=== PATIENT | male | born 1955 | race Caucasian/White ===

== ENCOUNTER 2020-03-20 13:05 | Outpatient (CLI) | payer MEDICAID, SELFPAY ==
--- NOTE | 2020-03-20 13:30 | CT_ITS ---
WS: [id number] CT LUMBAR SPINE TECHNIQUE: Noncontrast CT of the lumbar spine with coronal and sagittal reformatted images. CLINICAL INFORMATION: Low back pain COMPARISON: MRI January 19, 2020 DLP: 2221.[address] scans at [facility] use at least one of these dose optimization techniques: automat ed exposure control; mA and/or kV adjustment per patient size (includes targeted exams where dose is matched to clinical indication); or iterative reconstruction. FINDINGS: Mild lumbar curve. No acute compression. Grade 1 anterolisthesis L5 on S1 measuring 1.5 mm. Chronic b ilateral spondylolysis. Disc bulging worse at L3-L4, L4-L5 and L5-S1. No acute appearing compression fractures. L1-L2: Normal. L2-L3: Mild annular bulging with slight effacement of ventral thecal sac. Moderate facet arthropathy. Spinal canal and foramen are patent. L3-L4: Mild annular bulging with mild central canal stenosis. Mild right greater than left foraminal narrowing. Moderate facet arthropathy. L4-L5: Mild annular bulging with slight effacement of ventral thecal sac. Mild right and no significa nt left foraminal narrowing. Moderate moderate facet arthropathy with ligamentum flavum hypertrophy. L5-S1: Small right pericentral protrusion with slight contact of the right S1 nerve root. Mild to mod erate bilateral foraminal narrowing right greater than left. Moderate facet arthropathy Visualized pelvic bony structures: Normal. Paravertebral soft tissues: Normal. CT/CT lumbar spine wo con* [id number] IMPRESSION: 1. No significant changes since the prior MRI. 2. Slight anterolisthesis L5 on S1 measuring 1.6 mm with chronic spondylolysis . 3. Mild central canal stenosis L3-L4 and L4-L5. 4. Small right pericentral protrusion L5-S1 slightly impinges the right S1 ner ve root. 5. [id number]-[id number]'s bony foraminal narrowing worse at bilateral L5 S1.
--- NOTE | 2020-03-20 13:45 | XR_ITS ---
WS: [id number] LUMBAR SPINE FLEXION AND EXTENSION TECHNIQUE: 3 views of the lumbar spine: Lateral neutral, flexion, and extension views. CLINICAL INFORMATION: Low back pain COMPARISON: None. FINDINGS: Normal lumbar alignment on the neutral view. No instability on the flexion and extension views. Mild chronic anterior wedging at T11 and T12. Moderate facet arthropathy L4-L5 and L5-S1. Aortic calc ification. Chronic spondylolysis L5-S1. XR/XR lumbar spine f/e only [id number] IMPRESSION: No instability on flexion-extension.
== END 2020-03-20 13:06 | disposition home or self-care (01) ==
LOC: RADWPI 13:07
PROVIDERS: Family Provider Nurse Practitioner Family; PCP Nurse Practitioner Family; Visit Provider Licensed Practical Nurse
DX: M54.5 Low back pain (principal); M48.062 Spinal stenosis, lumbar region with neurogenic claudication; M51.17 Intervertebral disc disorders with radiculopathy, lumbosacral region
CPT/HCPCS: 72120; 72131

== ENCOUNTER 2020-05-19 09:07 | Outpatient (CLI) | payer MEDICAID, SELFPAY ==
--- NOTE | 2020-05-19 09:12 | MR_ITS ---
WS: [id number] MRI BRAIN WITHOUT AND WITH CONTRAST, ATTENTION DIRECTED TO THE PITUITARY GLAND HISTORY: Hypercortisolism; juan antonio's SYNDROME COMPARISON: None available. TECHNIQUE: Diffusion-weighted imaging, axial T2 sequence, and postcontrast images in 3 planes are per formed. High-resolution coronal and sagittal imaging performed through the pituitary region with and without intravenous gadolinium. High-resolution imaging to the pituitary gland are negative for mass or space-occupying lesion. Pitui tary gland is small caliber and in the base of the dorsum sellae. There are no enhancing or nonenhanc ing masses. No displacement of the infundibulum of the optic chiasm. No soft tissue mass or abnormal enhancement through the cavernous sinuses. No acute infarcts. No inferior displacement of cerebellar tonsils. There is extensive T2 and FLAIR si gnal hyperintensities throughout the white matter. No prior large territory infarcts. There is mild a trophy and volume loss. Ventricles are normal. No hydrocephalus. No enhancing masses. Orbits and glob es are negative. MR/MR pituitary wo/w con* [id number] IMPRESSION: 1. Normal pituitary gland for age. No enhancing masses. 2. Numerous T2 and FLAIR signal hyperintensities scattered throughout the supr atentorial white matter. These findings can be seen with microvascular disease, demyelinating disease, vasculitis or migraines. The extent of disease is more than expected for age. 3. Mild atrophy.
== END 2020-05-19 09:08 | disposition home or self-care (01) ==
LOC: RADSHAW 09:09
PROVIDERS: PCP Nurse Practitioner Family; Visit Provider Nurse Practitioner Family
DX: E24.9 Cushing's syndrome, unspecified (principal); E23.6 Other disorders of pituitary gland
CPT/HCPCS: 70553; A9579

== ENCOUNTER → 2020-11-28 14:38 | Outpatient (BNVA) | payer MEDICAID, SELFPAY | PROVIDERS: PCP Nurse Practitioner Family; Referring Provider Nurse Practitioner Family; Visit Provider Internal Medicine | DX: D35.01 Benign neoplasm of right adrenal gland (principal); D35.02 Benign neoplasm of left adrenal gland; E27.8 Other specified disorders of adrenal gland | CPT/HCPCS: 99204 ==

== ENCOUNTER → 2021-09-27 10:47 | Outpatient (BNVA) | payer MEDICAID, SELFPAY | PROVIDERS: PCP Nurse Practitioner Family; Visit Provider Internal Medicine | DX: D35.01 Benign neoplasm of right adrenal gland (principal); D35.02 Benign neoplasm of left adrenal gland; M54.9 Dorsalgia, unspecified; G62.9 Polyneuropathy, unspecified; F17.200 Nicotine dependence, unspecified, uncomplicated | CPT/HCPCS: 99214 ==

== ENCOUNTER → 2023-08-05 13:40 | Outpatient (BNVA) | payer MEDICAID, SELFPAY | PROVIDERS: PCP Nurse Practitioner Family; Referring Provider Nurse Practitioner Family; Visit Provider Physician Assistant | DX: M48.062 Spinal stenosis, lumbar region with neurogenic claudication (principal); M51.17 Intervertebral disc disorders with radiculopathy, lumbosacral region | CPT/HCPCS: 72110; 99203 ==

== ENCOUNTER 2023-08-19 15:48 | Outpatient (CLI) | payer MEDICARE, MEDICAID, SELFPAY ==
--- NOTE | 2023-08-19 16:45 | MR_ITS ---
WS: [id number] MRI LUMBAR SPINE NONCONTRAST TECHNIQUE: Sagittal T1, T2 and STIR imaging. Axial T1 and T2 imaging. CLINICAL INFORMATION: back pain COMPARISON: MRI 01/19/2020 FINDINGS: Mild lumbar curve. No acute compression. Chronic spondylolysis L5-S1. No significant anterolisthesis. L1-L2: Normal. L2-L3: No significant disc bulging. Mild facet arthropathy. Spinal canal and foramen are patent. L3-L4: Mild annular bulging. Mild central canal stenosis. Moderate facet arthropathy. Mild RIGHT grea ter than LEFT foraminal narrowing. L4-L5: Mild annular bulging. Mild to moderate central canal stenosis. Epidural fat contributes to marli rowing of the thecal sac. Moderate facet arthropathy. Mild RIGHT greater than LEFT foraminal narrowin g. L5-S1: RIGHT eccentric disc bulging. Slight contact of the traversing RIGHT S1 nerve root. Mild facet arthropathy. Severe LEFT and mild to moderate RIGHT foraminal narrowing. Visualized pelvic bony structures: Normal. Paravertebral soft tissues: Normal. RIGHT renal cyst measuring 2.5 cm. Additional partially visualized RIGHT adrenal lesion measuring 4-5 cm appears unchanged. Adrenal gland could be further evaluated with CT adrenal protocol. IMPRESSION: 1. Mild lumbar curve. No acute compression. 2. Mild central canal stenosis L3-4 and mild to moderate narrowing of the thecal sac L4-5. Epidural fat contributes to stenosis. This is progressed slightly compared to 2019. 3. Chronic spondylolysis L5-S1 with minimal anterolisthesis. This is unchanged. Severe LEFT L5-S1 fo raminal narrowing appears stable. 4. Disc bulging L5-S1 slightly impinges the traversing RIGHT S1 nerve root unchanged. 5. Mild RIGHT L3-4 and RIGHT L4-5 foraminal narrowing appears stable. 6. Moderate facet arthropathy L3-L5.
== END 2023-08-19 15:49 | disposition home or self-care (01) ==
LOC: RAD 15:49
PROVIDERS: PCP Nurse Practitioner Family; Visit Provider Physician Assistant
DX: M48.062 Spinal stenosis, lumbar region with neurogenic claudication (principal); M47.816 Spondylosis without myelopathy or radiculopathy, lumbar region; M51.37 Other intervertebral disc degeneration, lumbosacral region
CPT/HCPCS: 72148

== ENCOUNTER → 2023-09-09 13:49 | Outpatient (BNVA) | payer MEDICARE, MEDICAID, SELFPAY | PROVIDERS: PCP Nurse Practitioner Family; Visit Provider Physician Assistant | DX: M48.062 Spinal stenosis, lumbar region with neurogenic claudication (principal); N28.1 Cyst of kidney, acquired; M51.26 Other intervertebral disc displacement, lumbar region | CPT/HCPCS: 72100; 99213 ==